=== PATIENT | male | born 1995 | race Caucasian/White ===

== ENCOUNTER 2021-11-26 20:40 | Emergency (ER) | payer SELFPAY ==
[2021-11-26 21:04] VITALS: BMI 30.2
[2021-11-26] MEDS ORDERED: ACETAMINOPHEN 325 MG TABLET (FP) PO ONE (21:29)
[2021-11-26] MEDS ORDERED: ONDANSETRON 4 MG TABLET PO ONE ×2 (22:11→22:17)
[2021-11-26 22:32] VITALS: BP 136/78; PULSE 104; TEMP 99
[2021-11-28 21:09] LABS: SARS-CoV-2 NAA Detected (Not Detected)
== END 2021-11-26 22:35 | disposition home or self-care (01) ==
LOC: JER 20:40
DX: U07.1 COVID-19 (principal)
CPT/HCPCS: 87804; 99283-25; C9803; U0003; U0005

== ENCOUNTER 2023-06-09 18:54 | Emergency (ER) | payer OTHER ==
[2023-06-09 19:15] VITALS: BP 119/75; PULSE 92; RESP 19; TEMP 97.9; BMI 30.7
[2023-06-09] MEDS ORDERED: hydrOXYzine PAMOATE 25 MG CAPSULE (FP) PO ONE ×2 (19:51→19:58)
== END 2023-06-09 20:26 | disposition home or self-care (01) ==
LOC: JER 18:54 → JERFT 18:54
DX: F41.9 Anxiety disorder, unspecified (principal); R06.02 Shortness of breath; R11.10 Vomiting, unspecified; R06.4 Hyperventilation
CPT/HCPCS: 99283-25

== ENCOUNTER 2023-06-09 21:31 | Emergency (ER) | payer OTHER ==
[2023-06-09 21:38] VITALS: BP 121/76; PULSE 92; RESP 19; TEMP 98.1; BMI 29.0
[2023-06-09] MEDS ORDERED: SODIUM CHLORIDE 0.9% 500 ML INFUS.BAG IV ONE (22:22)
[2023-06-09] MEDS ORDERED: ACETAMINOPHEN 1000 MG/100 ML BAG IVPB ONE (22:22)
[2023-06-09] MEDS ORDERED: ONDANSETRON 4 MG/2 ML VIAL IVPUSH ONE (22:23)
[2023-06-09] MEDS ORDERED: ACETAMINOPHEN INJECTION 100 ML IVPB ONE (22:45)
[2023-06-09] MEDS ORDERED: ONDANSETRON 4 MG/2 ML VIAL ONE (22:46)
[2023-06-09 22:49] LABS: BASO % 0.6 % (0-2.0); EOS % 0.7 % (0-4.5); HEMATOCRIT 45.5 % (35.4-49); HEMOGLOBIN 15.2 GM/dL (11.7-16.9); LYMPH % 21.4 % (8-40); MCH 28.3 pg (25.7-33.7); MCHC 33.4 g/dl (32.0-35.9); MEAN CELL VOLUME 84.8 fl (80-96); MEAN PLT VOLUME 9.5 fl (7.5-11.1); MONO % 5.4 % (3.8-10.2); NEUT % 71.9 % (42.8-82.8); PLATELET COUNT 246 10^3/uL (134-434); RBC 5.36 M/mm3 (4.00-5.60); RDW 12.9 % (11.9-15.9); WHITE BLOOD COUNT 13.4 K/mm3 (4.0-10.0)
[2023-06-09 23:18] LABS: POTASSIUM 3.8 mmol/L (3.5-5.1)
[2023-06-09 23:20] LABS: BLOOD UREA NITROGEN 10.9 mg/dL (7-18); CALCIUM 9.6 mg/dL (8.5-10.1)
[2023-06-09 23:21] LABS: ALBUMIN 3.9 g/dl (3.4-5.0)
[2023-06-09 23:23] LABS: CREATININE 0.9 mg/dL (0.55-1.3)
[2023-06-09 23:25] LABS: BILIRUBIN,TOTAL 0.4 mg/dL (0.2-1); TOT PROT 7.2 g/dl (6.4-8.2)
== END 2023-06-10 00:20 | disposition home or self-care (01) ==
LOC: JER 21:31
PROC: 3E033NZ Introduction of Analgesics, Hypnotics, Sedatives into Peripheral Vein, Percutaneous Approach (ICD-10-PCS; principal; 2023-06-09)
PROC: 3E033GC Introduction of Other Therapeutic Substance into Peripheral Vein, Percutaneous Approach (ICD-10-PCS; 2023-06-09)
DX: R55 Syncope and collapse (principal); F41.0 Panic disorder [episodic paroxysmal anxiety]; R06.02 Shortness of breath; R20.0 Anesthesia of skin; R11.2 Nausea with vomiting, unspecified; M79.10 Myalgia, unspecified site; R06.4 Hyperventilation; Z20.822 Contact with and (suspected) exposure to COVID-19
CPT/HCPCS: 0241U-QW; 36415; 80053; 83690; 85025; 93005; 93010; 99284-25